=== PATIENT | female | born 1955 ===

== ENCOUNTER 2023-03-30 13:59 | Outpatient (OUT) | payer OTHER, SELFPAY ==
--- NOTE | 2023-03-30 | XR_ITS ---
[facility] [id number] Patient Name: ERNIE HUSSEIN MRN: [id number] date: 1955 Sex: F Assigned Patient Location: [facility] Current Patient Location: Accession/Order Number: [id number] Exam Date: 03/30/2023 14:25 Report Date: 03/31/2023 13:21 At the request of: ANA ENRIQUE Procedure: XR foot LT min 3V STUDY: XR foot LT min 3V, [id number] HISTORY: LEFT FOOT PAIN COMPARISON: None FINDINGS/IMPRESSION: No acute fracture, dislocation, or suspicious osseous lesion. Status post bunionectomy and K wire placement in the first metatarsal. The K wire is intact. Mild osteoarthritis at the first metatarsophalangeal joint. No other significant degenerative changes. First metatarsal and plantar calcaneal alignment are within normal limits. Electronically authenticated by: KATRINA BURCIAGA Date: 03/31/2023 13:21
== END 2023-03-30 14:00 | disposition home or self-care (01) ==
LOC: RAD 14:01
PROVIDERS: Visit Provider Podiatrist Foot & Ankle Surgery
DX: M79.672 Pain in left foot (principal)
CPT/HCPCS: 73630